=== PATIENT | male | born 1990 | race African-American/Black ===

== ENCOUNTER 2016-05-22 20:30 | Emergency (ER) | payer OTHER ==
[~2016-05-22] VITALS: Ht 175.3 cm; Wt 136.0 kg
[~2016-05-22 20:30] MED LIST: DICY1TAB26 PO; PANT20 PO; SUCR1TAB PO
[2016-05-22 20:32] VITALS: BP 143/79; PULSE 93; RESP 16; TEMP 98.6; O2SAT 97
--- NOTE | 2016-05-22 21:38 | RADRPT ---
EXAM DATE/TIME: 05/22/2016 21:01 [place] COMPARISON: No previous studies available for comparison. INDICATIONS : Cough, shortness of breath for 2 hours MEDICAL HISTORY : None. SURGICAL HISTORY : None. ENCOUNTER: Initial ACUITY: 1 day PAIN SCORE: 0/10 LOCATION: Bilateral chest FINDINGS: A single view of the chest demonstrates the lungs to be symmetrically aerated without evidence of mas s, infiltrate or effusion. The cardiomediastinal contours are unremarkable. Osseous structures are intact. CONCLUSION: No acute disease. Deyvi Garcia MD on May 22, 2016 at 21:37 Board Certified Radiologist. This report was verified electronically.
[2016-05-22] MEDS ORDERED: AZIT250T3 PO (22:12)
[2016-05-22] MEDS ORDERED: BENZ100 PO (22:12)
--- NOTE | 2016-05-22 22:15 | PD ---
HPI Chief Complaint: Respiratory Symptoms Time Seen by Provider: 22:12 Travel History International Travel<30 days: No Contact w/Intl Traveler<30days: No Traveled to known affect area: No History of Present Illness HPI 26-year-old male that presents to the ED for evaluation of chest discomfort cold -like symptoms. Patient reports that the symptoms started today. Per patient he said back cough and shortness of breath. Per patient he coughed have some chest discomfort. Per patient the chest discomfort that brought him here. Per patient he did took some Mucinex with some relief. Per patient the cough is dry and wet. Per patient he has yellow phlegm. He has not taken anything else for this. He denies any sick contacts. No recent travel. No chest trauma. No history of heart disease. No medical problems. No asthma. But short of breath patient me is that he has a lot of cough and causes him to be short of breath. PFSH Past Medical History Medical History: Denies Significant Hx Diminished Hearing: No Gastrointestinal Disorders: Yes (ULCER?) Immunizations Current: Yes Tetanus Vaccination: Unknown Influenza Vaccination: Yes Past Surgical History Other Surgery: No Social History Alcohol Use: Yes (OCC) Tobacco Use: No Substance Use: No Allergies-Medications (Allergen,Severity, Reaction): Coded Allergies: No Known Allergies (Unverified , 05/22/16) Reported Meds & Prescriptions Reported Meds & Active Scripts Active No Active Prescriptions or Reported Medications Review of Systems Except as stated in HPI: all other systems reviewed are Neg Physical Exam Narrative GENERAL: Well-nourished, well-developed patient in no apparent distress. SKIN: Warm and dry. HEAD: Atraumatic. Normocephalic. EYES: Pupils equal and round reactive to light and accommodation. No scleral icterus. No injection or drainage. ENT: No nasal bleeding or discharge. Mucous membranes pink and moist. TMs are clear with no sign of infection or perforation. No mastoid tenderness. Ear canals are intact bilaterally. No lymphadenopathy. Nostril mucosa is red and moist with clear mucus noted. No sinus tenderness to palpation noted. Tonsils are not enlarged or swollen. No ulvua Deviation. Tongue is midline. NECK: Trachea midline. No JVD. No meningeal signs noted CARDIOVASCULAR: Regular rate and rhythm. RESPIRATORY: No accessory muscle use. Clear to auscultation. Breath sounds equal bilaterally. Data Data Last Documented VS Vital Signs Date Time Temp Pulse Resp B/P Pulse Ox O2 Delivery O2 Flow Rate FiO2 05/22/16 20:51 87 16 99 Room Air 05/22/16 20:32 98.6 143/79 Orders Chest, Single Ap (05/22/16 ) [facility] Medical Decision Making Medical Screen Exam Complete: Yes Emergency Medical Condition: Yes Medical Record Reviewed: Yes Interpretation(s) Last Impressions Chest X-Ray 05/22/16 0000 Signed Impressions: Service Date/Time: Sunday, May 22, 2016 21:01 - CONCLUSION: No acute disease. Deyvi Garcia MD Differential Diagnosis Chest pain versus a typical chest pain versus pleurisy versus bronchitis versus pneumonia Narrative Course 26-year-old male that presents to the ED for evaluation of cold like symptoms. Patient was properly examined and was found to have signs and symptoms consistent with appears to be bronchitis. Patient will be treated for this with Tessalon Perles and azithromycin. Told to follow with PCP. Take OTC medicines as needed. Follow with PCP. See ED worsening symptoms. Diagnosis Primary Impression: Bronchitis Patient Instructions: General Instructions Additional Instructions: Motrin and Tylenol for pain and fever. You can use [id number] antihistamine as well as well as Mucinex as needed for runny nose and congestion. Cough drops for cough as needed. Drink plenty of fluids. Follow-up with PCP. See ED for worsening symptoms. Med/Other Pt SpecificInfo: Prescription(s) given Scripts Benzonatate (Tessalon Perles)100 Mg [id number] Mg PO TID PRN (COUGH) #20 CAP Prov:Segundo Belle MD 05/22/16 Azithromycin 250 Mg [id number] Mg PO DIRECTED #6 TAB Take 2 tabs (500 mg) on day 1 then 1 tab daily x 4 days. Prov:Segundo Belle MD 05/22/16 Disposition: DISCHARGE HOME Condition: Stable Arnie Johnson May 22, 2016 22:15
[2016-05-22 22:28] VITALS: BP 136/72; PULSE 89; RESP 14; O2SAT 98
== END 2016-05-22 22:33 | disposition home or self-care (01) ==
LOC: NEPE 20:30
DX: J40 Bronchitis, not specified as acute or chronic (principal); R07.9 Chest pain, unspecified; Z87.19 Personal history of other diseases of the digestive system
CPT/HCPCS: 71010; 99284

== ENCOUNTER 2016-06-10 13:12 | Emergency (ER) | payer OTHER ==
[~2016-06-10] VITALS: Ht 175.3 cm; Wt 135.0 kg
[~2016-06-10 13:12] MED LIST changes: +AZIT250T3 PO; +BENZ100 PO; -DICY1TAB26 PO; -PANT20 PO; -SUCR1TAB PO
[2016-06-10 13:13] VITALS: BP 149/87; PULSE 72; RESP 20; TEMP 98.1; O2SAT 97
== END 2016-06-10 14:16 | disposition left against medical advice (07) ==
LOC: NED 13:12
DX: K92.9 Disease of digestive system, unspecified (principal)
CPT/HCPCS: 99281

== ENCOUNTER 2017-03-21 22:40 | Emergency (ER) | payer OTHER ==
[~2017-03-21] VITALS: Ht 175.3 cm; Wt 134.0 kg
[2017-03-21 22:42] VITALS: BP 151/77; PULSE 76; RESP 16; TEMP 99.9; O2SAT 95; O2SAT 98
[2017-03-21] MEDS ORDERED: CLIN300C5 PO (22:53)
--- NOTE | 2017-03-21 22:53 | PD ---
HPI . Toothache Chief Complaint: Oral / Dental Pain or Problem Time Seen by Provider: 22:45 Travel History International Travel<30 days: No Contact w/Intl Traveler<30days: No Traveled to known affect area: No History of Present Illness HPI This patient presents with the acute onset of a toothache which started at 6:00 tonight. It is a right upper tooth. He states that he has taken Tylenol and ibuprofen without relief of his pain. He has also rinsed his mouth with peroxide and tried to brush his teeth thoroughly. No modifying factors. Pain is rated 9/10. PFSH Past Medical History Diminished Hearing: No Gastrointestinal Disorders: Yes (ULCER?) Immunizations Current: Yes Past Surgical History Other Surgery: No Social History Alcohol Use: Yes (OCC) Tobacco Use: No Substance Use: No Allergies-Medications (Allergen,Severity, Reaction): Coded Allergies: No Known Allergies (Unverified Adverse Reaction, Unknown, 03/21/17) Reported Meds & Prescriptions Reported Meds & Active Scripts Active Tessalon Perles (Benzonatate) 100 Mg Cap 100 Mg PO TID PRN Azithromycin 250 Mg Tab 250 Mg PO DIRECTED Take 2 tabs (500 mg) on day 1 then 1 tab daily x 4 days. Review of Systems Except as stated in HPI: all other systems reviewed are Neg HENT: Positive: Dental Difficulties Physical Exam Narrative GENERAL: Awake and alert and in no acute distress. SKIN: Warm and dry. No redness or warmth of the skin of the face. HEAD: Normocephalic/atraumatic. No facial swelling. EYES: Pupils are equal. Extraocular movements are intact. ENT: Tooth #11 is decayed to the gumline. It is tender to percussion. NECK: Normal range of motion. CARDIOVASCULAR: Regular rate and rhythm. RESPIRATORY: Nonlabored respirations. MUSCULOSKELETAL: Atraumatic. NEUROLOGICAL: Nonfocal. PSYCHIATRIC: Appropriate mood and affect. Data Data Last Documented VS Vital Signs Date Time Temp Pulse Resp B/P (MAP) Pulse Ox O2 Delivery O2 Flow Rate FiO2 03/21/17 22:42 99.9 76 16 151/77 (101) 95 Room Air Orders Orders Clindamycin (Cleocin) (03/21/17 23:00) MDM Medical Decision Making Medical Screen Exam Complete: Yes Emergency Medical Condition: Yes Differential Diagnosis Differential diagnosis of a toothache includes but is not limited to dental caries, dental abscess, gingivitis, drug-seeking behavior. Narrative Course Patient presents with an acute toothache. I will treat him with clindamycin. Diagnosis Primary Impression: Toothache Patient Instructions: General Instructions, Toothache (ED) Med/Other Pt SpecificInfo: Prescription(s) given Scripts Clindamycin (Clindamycin) 300 Mg Cap 300 MG PO TID for Infection for 10 Days, CAP 0 Refills Prov: Yolanda Chanel MD 03/21/17 Disposition: 01 DISCHARGE HOME Condition: Stable Yolanda Chanel MD Mar 21, 2017 22:53
[2017-03-21] MEDS ORDERED: CLINDAMYCIN 150 MG CAP PO ONE (23:00)
== END 2017-03-21 23:35 | disposition home or self-care (01) ==
LOC: NEPD 22:40
DX: K08.89 Other specified disorders of teeth and supporting structures (principal)
CPT/HCPCS: 99283

== ENCOUNTER 2017-05-05 20:29 | Emergency (ER) | payer OTHER ==
[~2017-05-05] VITALS: Ht 180.3 cm; Wt 134.6 kg
[~2017-05-05 20:29] MED LIST changes: +CLIN300C5 PO
[2017-05-05 20:35] VITALS: BP 149/69; PULSE 60; RESP 16; TEMP 97.9; O2SAT 100
[2017-05-05] MEDS ORDERED: AMOX500T PO (21:07)
[2017-05-05] MEDS ORDERED: MECLIZINE HCL 25 MG TAB PO ONE (21:15)
[2017-05-05] MEDS ORDERED: ZOFR4TAB3 SL (21:17)
[2017-05-05] MEDS ORDERED: MECL-62 PO (21:17)
--- NOTE | 2017-05-05 21:17 | PD ---
HPI Chief Complaint: Dizziness Time Seen by Provider: 21:05 Travel History International Travel<30 days: No Contact w/Intl Traveler<30days: No Traveled to known affect area: No History of Present Illness HPI 27-year-old male complains of dizziness. Patient states that the dizziness started this afternoon. Patient states that he has sensation of things spinning around him. Patient states that he has occasional nausea with the dizziness. Patient denies any headache. Patient denies any visual change. Patient denies any chest pain or shortness of breath. Patient denies abdominal pain. Patient denies any focal weakness or numbness of extremity. Patient has been eating well. Patient denies any vomiting or diarrhea. Patient had dental procedure done recently and on amoxicillin, ibuprofen and hydrocodone occasionally. Last dose of hydrocodone was last night. Patient denies any alcohol or drug abuse. PFSH Past Medical History Cardiovascular Problems: No Diminished Hearing: No Genitourinary: No Musculoskeletal: No Neurologic: No Reproductive: No Respiratory: No Immunizations Current: Yes Past Surgical History Surgical History: No Previous Surgery Other Surgery: No Social History Alcohol Use: No Tobacco Use: No Substance Use: No Allergies-Medications (Allergen,Severity, Reaction): Coded Allergies: No Known Allergies (Unverified Adverse Reaction, Unknown, 03/21/17) Reported Meds & Prescriptions Reported Meds & Active Scripts Active Reported Amoxicillin 500 Mg Tab 500 Mg PO BID Review of Systems General / Constitutional: No: Fever Eyes: No: Visual changes HENT: Positive: Lightheadedness, No: Headaches Cardiovascular: No: Chest Pain or Discomfort Respiratory: No: Shortness of Breath Gastrointestinal: No: Abdominal Pain Genitourinary: No: Dysuria Musculoskeletal: No: Pain Skin: No Rash Neurologic: No: Weakness Psychiatric: No: Depression Endocrine: No: Polydipsia Hematologic/Lymphatic: No: Easy Bruising Physical Exam Narrative GENERAL: Well-nourished, well-developed patient. SKIN: Focused skin assessment warm/dry. HEAD: Normocephalic. EYES: No scleral icterus. No injection or drainage. NECK: Supple, trachea midline. No JVD or lymphadenopathy. CARDIOVASCULAR: Regular rate and rhythm without murmurs, gallops, or rubs. RESPIRATORY: Breath sounds equal bilaterally. No accessory muscle use. GASTROINTESTINAL: Abdomen soft, non-tender, nondistended. MUSCULOSKELETAL: No cyanosis, or edema. BACK: Nontender without obvious deformity. No CVA tenderness. Neurologic exam normal. Data Data Last Documented VS Vital Signs Date Time Temp Pulse Resp B/P (MAP) Pulse Ox O2 Delivery O2 Flow Rate FiO2 05/05/17 20:35 97.9 60 16 149/69 (95) 100 Orders Orders Meclizine (Antivert) (05/05/17 21:15) MDM Medical Decision Making Medical Screen Exam Complete: Yes Emergency Medical Condition: Yes Differential Diagnosis Differential diagnosis including vertigo, electrolyte abnormality, dehydration, side effect to medications. Narrative Course 27-year-old male with sudden onset of dizziness and nausea. Meclizine 25 mg by mouth given. Diagnosis Primary Impression: Acute onset of severe vertigo Patient Instructions: General Instructions Additional Instructions: Meclizine as needed. Zofran as needed for nausea. Follow-up with personal physician. Return if worse. Med/Other Pt SpecificInfo: Prescription(s) given Scripts Ondansetron Odt (Zofran Odt) 4 Mg Tab 4 MG SL Q6HR Y for Nausea/Vomiting, #6 TAB 0 Refills Prov: Ezekiel Laws MD 05/05/17 Meclizine (Meclizine) 25 Mg Tab 25 MG PO TID Y for VERTIGO, #21 TAB 0 Refills Prov: Ezekiel Laws MD 05/05/17 Disposition: 01 DISCHARGE HOME Condition: Stable Ezekiel Laws MD May 05, 2017 21:17
== END 2017-05-05 21:54 | disposition home or self-care (01) ==
LOC: NEPD 20:29
DX: R42 Dizziness and giddiness (principal); R11.0 Nausea
CPT/HCPCS: 99284

== ENCOUNTER 2017-09-15 15:16 | Emergency (ER) | payer OTHER ==
[~2017-09-15] VITALS: Ht 175.3 cm; Wt 140.0 kg
[~2017-09-15 15:16] MED LIST changes: +AMOX500T PO; -AZIT250T3 PO; -BENZ100 PO; -CLIN300C5 PO; +MECL-62 PO; +ZOFR4TAB3 SL
[2017-09-15 15:31] VITALS: BP 124/70; PULSE 89; RESP 20; TEMP 98.5; O2SAT 99
--- NOTE | 2017-09-15 16:22 | PD ---
HPI Chief Complaint: Cold / Flu Symptoms Time Seen by Provider: 16:21 Travel History International Travel<30 days: No Contact w/Intl Traveler<30days: No Traveled to known affect area: No History of Present Illness HPI 27-year-old male presents emergency department with upper respiratory symptoms for the past 3 days. These include headache, sore throat, and cough. Patient states he now has shortness of breath, chest tightness, and worsening cough. He states whenever he gets a cold he go straight to his chest. He is needed steroids in the past. He is a non-smoker. He has not needed an inhaler in the past. He also states sinus congestion and postnasal drip noted. Both ears feel clogged but otherwise not tender. He has no nausea, vomiting, or diarrhea. He has no known drug allergies. PFSH Past Medical History Cardiovascular Problems: No Diminished Hearing: No Genitourinary: No Musculoskeletal: No Neurologic: No Reproductive: No Respiratory: No Immunizations Current: Yes Past Surgical History Other Surgery: No Social History Alcohol Use: No Tobacco Use: No Substance Use: No Allergies-Medications (Allergen,Severity, Reaction): Coded Allergies: No Known Allergies (Unverified Adverse Reaction, Unknown, 03/21/17) Reported Meds & Prescriptions Reported Meds & Active Scripts Active Ventolin Hfa 18 GM Inh (Albuterol Sulfate) 90 Mcg/Act Aer 2 Puff INH Q4-6H PRN Prednisone 20 Mg Tab 20 Mg PO BID 5 Days Flonase Nasal [place] (Fluticasone Nasal [place]) 50 Mcg/Act [place] 100 Mcg EACH NARE BID Amoxicillin 875 Mg Tab 875 Mg PO BID 10 Days Zofran Odt (Ondansetron Odt) 4 Mg Tab 4 Mg SL Q6HR PRN Meclizine (Meclizine HCl) 25 Mg Tab 25 Mg PO TID PRN Reported Amoxicillin 500 Mg Tab 500 Mg PO BID Review of Systems Except as stated in HPI: all other systems reviewed are Neg General / Constitutional: Positive: Chills, No: Fever Eyes: No: Visual changes HENT: Positive: Headaches, Sore Throat, Rhinitis, Rhinorrhea, Congestion, No: Vertigo, Lightheadedness, Nosebleed, Neck Stiffness, Neck Pain, Dental Difficulties, Earache Cardiovascular: No: Chest Pain or Discomfort Respiratory: Positive: Cough, Shortness of Breath, Wheezing, No: Sneezing, Pleuritic Pain Gastrointestinal: No: Nausea, Vomiting, Diarrhea, Abdominal Pain Genitourinary: No: Dysuria Musculoskeletal: No: Pain Skin: No Rash Neurologic: No: Weakness Psychiatric: No: Depression Endocrine: No: Polydipsia Hematologic/Lymphatic: No: Easy Bruising Physical Exam Narrative GENERAL: Patient appears mildly ill but not septic SKIN: Warm and dry. Normal color. Normal turgor HEAD: Atraumatic. Normocephalic. Moderate maxillary sinus tenderness bilaterally per EYES: Pupils equal and round. No scleral icterus. No injection or drainage. ENT: No nasal bleeding or discharge. Mucous membranes pink and moist. TMs are dull bilaterally somewhat injected on the right. Posterior pharynx is mildly injected with cobblestoning noted as well as postnasal drip. NECK: Trachea midline. Supple and nontender CARDIOVASCULAR: Regular rate and rhythm. RESPIRATORY: No accessory muscle use. Mild diffuse wheezes noted to auscultation. No rhonchi or rales noted. Breath sounds equal bilaterally. GASTROINTESTINAL: Abdomen soft, non-tender, nondistended. Hepatic and splenic margins not palpable. MUSCULOSKELETAL: Extremities without clubbing, cyanosis, or edema. No obvious deformities. NEUROLOGICAL: Awake and alert. No obvious cranial nerve deficits. Motor grossly within normal limits. Five out of 5 muscle strength in the arms and legs. Normal speech. PSYCHIATRIC: Appropriate mood and affect; insight and judgment normal. Data Data Last Documented VS Vital Signs Date Time Temp Pulse Resp B/P (MAP) Pulse Ox O2 Delivery O2 Flow Rate FiO2 09/15/17 16:49 98 21 09/15/17 15:31 98.5 89 20 124/70 (88) Orders Orders Prednisone (Deltasone) (09/15/17 16:30) Albuterol-Ipratropium Neb (Duoneb Neb) (09/15/17 16:30) Amoxicillin (Trimox) (09/15/17 16:30) [facility] Medical Decision Making Medical Screen Exam Complete: Yes Emergency Medical Condition: Yes Differential Diagnosis Upper respiratory infection. Sinusitis. Wheezy bronchitis. Narrative Course Patient is medically stable time exam Chest x-ray not felt warranted based on my history and physical. Patient is given his first dose of amoxicillin 875 p.o. Patient is given prednisone 40 mg p.o. Patient is given DuoNeb 1. Patient felt improved after his DuoNeb. Patient is discharged home on amoxicillin twice daily 10 days per Patient is given Flonase nasal spray 2 sprays each nostril daily. Patient is given prednisone 20 mg twice daily for 5 days. Patient is given albuterol metered-dose inhaler 2 puffs every 4-6 hours as needed shortness of breath and wheezing Work note is given. Patient to follow-up as needed. Diagnosis Primary Impression: Acute wheezy bronchitis Patient Instructions: General Instructions Departure Forms: Work Release Enter return to work date: September 17, 2017 Additional Instructions: Chest x-ray not felt warranted based on my history and physical. Patient is given his first dose of amoxicillin 875 p.o. Patient is given prednisone 40 mg p.o. Patient is given DuoNeb 1. Patient felt improved after his DuoNeb. Patient is discharged home on amoxicillin twice daily 10 days per Patient is given Flonase nasal spray 2 sprays each nostril daily. Patient is given prednisone 20 mg twice daily for 5 days. Patient is given albuterol metered-dose inhaler 2 puffs every 4-6 hours as needed shortness of breath and wheezing Work note is given. Patient to follow-up as needed. Med/Other Pt SpecificInfo: Prescription(s) given Scripts Albuterol 18 GM Inh (Ventolin Hfa 18 GM Inh) 90 Mcg/Act Aer 2 PUFF INH Q4-6H Y for SHORTNESS OF BREATH, #1 INHALER 0 Refills Prov: Betty Fisher DO 09/15/17 Prednisone (Prednisone) 20 Mg Tab 20 MG PO BID for 5 Days, #10 TAB 0 Refills Prov: Betty Fisher DO 09/15/17 Fluticasone Nasal [place] (Flonase Nasal [place]) 50 Mcg/Act [place] 100 MCG EACH NARE BID for Allergies, #1 BOTTLE 0 Refills Prov: Betty Fisher DO 09/15/17 Amoxicillin (Amoxicillin) 875 Mg Tab 875 MG PO BID for Infection for 10 Days, #20 TAB 0 Refills Prov: Betty Fisher DO 09/15/17 Disposition: 01 DISCHARGE HOME Condition: Stable Vishnu Cr September 15, 2017 16:22
[2017-09-15] MEDS ORDERED: RESP: ALBUTEROL 2.5 MG/IPRATROPIUM 0.5 MG NEB (SCH) INH ONE (16:30)
[2017-09-15] MEDS ORDERED: predniSONE 20 MG TAB PO ONE (16:30)
[2017-09-15] MEDS ORDERED: AMOXICILLIN 875 MG TAB PO ONE (16:30)
[2017-09-15] MEDS ORDERED: FLUT1SPR5 EACH NARE (16:33)
[2017-09-15] MEDS ORDERED: VENTAER INH (16:33)
[2017-09-15] MEDS ORDERED: PRED20 PO (16:33)
[2017-09-15] MEDS ORDERED: AMOX875T PO (16:33)
[2017-09-15 16:49] VITALS: O2SAT 98
== END 2017-09-15 17:52 | disposition home or self-care (01) ==
LOC: NEPK 15:16
DX: J20.9 Acute bronchitis, unspecified (principal)
CPT/HCPCS: 94664; 99283; J7512